=== PATIENT | male | born 1970 | race Caucasian/White ===

== ENCOUNTER 2017-01-21 14:54 | Emergency (ER) | payer OTHER ==
[~2017-01-21] VITALS: Ht 188 cm; Wt 92.9 kg
[~2017-01-21 14:54] MED LIST: ALDACTONE100 MG PO; Aldactone PO; FOLIC ACID1 MG; FOLIC ACID1 MG PO; Folvite PO; KLOR-CON 1010 ME1 PO; LIBRIUM25 MG PO; MAG-OXIDE400 MG PO; PANTOPRAZOLE SO40 MG PO; PROPRANOLOL HCL60 MG; SPIRONOLACTONE100 MG PO; Thiamine,Vitamin B1 PO; VITAMIN B-1100 MG PO; [UNRECOGNIZED DRUG - OTHER] PO; nohome
[2017-01-21] MEDS ORDERED: ULTRAM50 MG PO (16:18)
[2017-01-21 16:44] VITALS: BP 150/79
== END 2017-01-21 16:44 | disposition home or self-care (01) ==
LOC: EME 14:54
DX: S90.31XA Contusion of right foot, initial encounter (principal); S93.401A Sprain of unspecified ligament of right ankle, initial encounter; V91.87XA Other injury due to other accident to water-skis, initial encounter; Y93.17 Activity, water skiing and wake boarding; K74.60 Unspecified cirrhosis of liver; F17.200 Nicotine dependence, unspecified, uncomplicated
CPT/HCPCS: 73610; 73630; 99281; 99283